=== PATIENT | male | born 1950 | race Caucasian/White ===

== ENCOUNTER → 2016-12-08 | Outpatient (CLI) | payer BC ==
[~2016-12-08] MED LIST: ALL100 PO; ALPR-411 PO; ASCA500 PO; ASPCH81X PO; ATOR-24 PO; LISI-729 PO; MAGN250T8 PO; METO1TAB69 PO; MULT-506 PO; OMEG10007 PO; OMEP20TA PO; OMEP40CA41 PO; PRIM50TA29 PO; SERT-234 PO; TOPI25TA99 PO
[2016-12-08 13:10] LABS: BASO % 0.3 %; BASO ABS # 0.02 K/uL (0-0.2); COMPLETE YES; EOS % 2.9 %; HEMATOCRIT 43.2 % (42-52); IG% 0.2 %; LYMPH % 21.5 %; LYMPH ABS # 1.25 K/uL (1.2-3.4); MEAN CELL VOLUME 93.7 fL (80-100); MEAN CORPUSCULAR HEMOGLOBIN 31.5 pg (25-34); MEAN CORPUSCULAR HGB CONC 33.6 g/dl (32-36); MONO % 6.4 %; NEUT % 68.7 %; PLATELET COUNT 171 K/uL (130-400); RED BLOOD COUNT 4.61 M/uL (4.7-6.1); WHITE BLOOD COUNT 5.81 K/uL (4.8-10.8)
[2016-12-08 13:45] LABS: ALT/SGPT 56 U/L (12-78); AST/SGOT 24 U/L (15-37); BLOOD UREA NITROGEN 25 mg/dl (7-18); BUN/CREATININE RATIO 18.1 (10-20); CALCIUM 8.7 mg/dl (8.5-10.1); CARBON DIOXIDE 24 mmol/L (21-32); CHLORIDE 111 mmol/L (98-107); CHOLESTEROL 157 mg/dl (0-200); GLUCOSE 82 mg/dl (70-99); POTASSIUM 4.6 mmol/L (3.5-5.1); SODIUM 143 mmol/L (136-145); TRIGLYCERIDES 154 mg/dl (0-150); URIC ACID 5.1 mg/dl (2.6-7.2); VERY LOW DENSITY LIPOPROT CALC 31 mg/dl
[2016-12-08 13:56] LABS: CHOLESTEROL/HDL RATIO 2.8; HDL CHOLESTEROL 57 mg/dl; LDL CHOLESTEROL CALCULATED 69 mg/dl
--- NOTE | 2016-12-28 07:33 | CODING QUERY NO DIAGNOSIS ---
TREATMENT RENDERED WITHOUT A DIAGNOSIS To promote full compliance with coding requirements relating to patient care, physician participation is requested in all cases of knockout worker uncertainty. Please assist us with providing a diagnosis/symptom for the test(s) below: A diagnosis/symptom was not documented on your Order. A valid diagnosis/symptom is required to bill all insurances. Please remember that we are unable to code a diagnosis of rule out, probable, possible, questionable, or suspected. Tests that require a diagnosis: DOS: 12/08/16 * CBC W/ AUTO DIFF DIAGNOSIS: * ALT/SGPT DIAGNOSIS: * AST/SGOT DIAGNOSIS: * CREATINE PHOSPHOKINASE DIAGNOSIS: * LIPID PROFIKE FASTING DIAGNOSIS: * PARTIAL RENAL PROFILE DIAGNOSIS: * TSH DIAGNOSIS: * URIC ACID DIAGNOSIS: Provider Signature: Date: Thank you Juliana Camarillo [employer] Once completed, please kindly fax back to [phone] For questions please call [phone]
== END | disposition home or self-care (01) ==
LOC: C.LAB 12:07
DX: Z01.89 Encounter for other specified special examinations (principal)

== ENCOUNTER → 2017-01-11 | Outpatient (CLI) | payer BC | END | disposition home or self-care (01) | LOC: C.LABSPEC 14:55 | DX: R30.0 Dysuria (principal) ==

== ENCOUNTER → 2017-02-22 | Day surgery (SDC) | payer BC ==
[2016-07-05 09:07] VITALS: BMI 42.0
[2017-02-13 09:50] VITALS: BMI 44.0
[~2017-02-22] VITALS: Ht 177.8 cm; Wt 140.9 kg
[~2017-02-22] MED LIST changes: +LIDOCAINE HCL 2% 2 ML VIAL (20MG/ML) ONE; +MIDAZOLAM HCL 1 MG/ML 2ML VIAL ONE; -OMEP40CA41 PO; +ONDANSETRON INJ 2 MG/ML 2 ML VIAL ONE; +PROPOFOL IV EMULSION 10 MG/ML 20 ML VIAL IV ONE; +SODIUM CHLORIDE 0.9% 500ML 500 ML IV ONE
[2017-02-22 12:48] VITALS: Ht 177.8 cm; Wt 140.9 kg
--- NOTE | 2017-02-22 12:50 | Endo History and Physical ---
History & Physical Date of Service: Feb 22, 2017. Chief Complaint: Screening Referring Physician: Joelle History of Present Illness 66 yo CM who presents for screening colonoscopy. Past Surgical History Hx Cardiac Surgery: No Hx Internal Defibrillator: No Hx Pacemaker: No Hx Abdominal Surgery: Yes (LAP ROSHAN, VENTRAL ABDOMINAL HERNIA) Hx of Implantable Prosthesis: No Hx Post-Op Nausea and Vomiting: No Hx Cancer Surgery: No Hx Thoracic Surgery: No Hx Orthopedic: Yes (LT KNEE SX X 2, LT TKA, RT KNEE SX) Hx Urinary Tract Surgery: No Family History None Social History Smoking Status: Never Smoker Hx Substance Use: No Hx Alcohol Use: Yes (SOCIALLY) Allergies Coded Allergies: No Known Drug Allergy (Verified Allergy, Unknown, NONE, 02/22/17) Current Medications Reported Home Medications Medications Dose Route/Sig Max Daily Dose Days Date Category Vitamin C (Ascorbic Acid) 500 Mg Tab 1 Tab PO QAM 02/13/17 Reported Topamax (Topiramate) 25 Mg Tab 25 Mg PO BID 02/13/17 Reported Omeprazole 20 Mg Tab 2 Tabs PO QAM 02/13/17 Reported Aspirin Chewable (Aspirin) 81 Mg Chew 81 Mg PO QPM 07/05/16 Reported Multivitamin (Multivitamins) Tab 1 Tab PO BID 07/05/16 Reported Xanax (Alprazolam) 0.5 Mg Tab 1-1.5 Tab PO Q6H PRN 07/05/16 Reported Lipitor (Atorvastatin Calcium) 40 Mg Tab 40 Mg PO QPM 07/05/16 Reported Zestril (Lisinopril) 5 Mg Tab 5 Mg PO QPM 07/05/16 Reported Toprol-Xl (Metoprolol Succinate) 100 Mg Tabcr 100 Mg PO QPM 07/05/16 Reported Zoloft (Sertraline HCl) 100 Mg Tab 200 Mg PO QAM 07/05/16 Reported Mysoline (Primidone) 50 Mg Tab 4 Tab PO BID 07/05/16 Reported Magnesium (Magnesium Oxide (Mg Supplement) 250 Mg Tab 500 Mg PO QPM 02/26/15 Reported [place]-3 (Fish Oil) 1 Ea Cap 1 Cap PO BID 03/30/10 Reported Zyloprim * (Allopurinol) 100 Mg Tab 100 Mg PO BID 01/20/08 Reported Vital Signs Weight (Kilograms): 140.91 Height (Feet): 5 Height (Inches): 10 Physical Exam General Appearance: WD/WN, no apparent distress Respiratory/Chest: Auscultation: breath sounds normal Cardiovascular: Heart Auscultation: RRR Abdomen: Bowel Sounds: normal Inspection & Palpation: soft, non-distended, no tenderness, guarding & rebound Assessment and Plan Assessment: 66 yo CM who presents for screening colonoscopy. Plan: Proceed with colonoscopy.
--- NOTE | 2017-02-22 13:40 | Discharge Instructions ---
Endoscopy Patient Instructions Date / Procedure(s) Performed Feb 22, 2017. Colonoscopy Allergy Information Coded Allergies: No Known Drug Allergy (Verified Allergy, Unknown, NONE, 02/22/17) Discharge Date / Findings Feb 22, 2017. Colon polyps Diverticulosis Internal hemorrhoids Medication Instructions Stopped Medication(s): DID NOT STOP ANY OK to resume all medications today as prescribed Reported Home Medications Medications Dose Route/Sig Max Daily Dose Days Date Category Vitamin C (Ascorbic Acid) 500 Mg Tab 1 Tab PO QAM 02/13/17 Reported Topamax (Topiramate) 25 Mg Tab 25 Mg PO BID 02/13/17 Reported Omeprazole 20 Mg Tab 2 Tabs PO QAM 02/13/17 Reported Aspirin Chewable (Aspirin) 81 Mg Chew 81 Mg PO QPM 07/05/16 Reported Multivitamin (Multivitamins) Tab 1 Tab PO BID 07/05/16 Reported Xanax (Alprazolam) 0.5 Mg Tab 1-1.5 Tab PO Q6H PRN 07/05/16 Reported Lipitor (Atorvastatin Calcium) 40 Mg Tab 40 Mg PO QPM 07/05/16 Reported Zestril (Lisinopril) 5 Mg Tab 5 Mg PO QPM 07/05/16 Reported Toprol-Xl (Metoprolol Succinate) 100 Mg Tabcr 100 Mg PO QPM 07/05/16 Reported Zoloft (Sertraline HCl) 100 Mg Tab 200 Mg PO QAM 07/05/16 Reported Mysoline (Primidone) 50 Mg Tab 4 Tab PO BID 07/05/16 Reported Magnesium (Magnesium Oxide (Mg Supplement) 250 Mg Tab 500 Mg PO QPM 02/26/15 Reported [place]-3 (Fish Oil) 1 Ea Cap 1 Cap PO BID 03/30/10 Reported Zyloprim * (Allopurinol) 100 Mg Tab 100 Mg PO BID 01/20/08 Reported Provider Instructions Activity Restrictions - No exercising or heavy lifting for 24 hours. - Do not drink alcohol the day of the procedure. - Do not drive a car or operate machinery until the day after the procedure. - Do not make any important decisions or sign important papers in 24 hours after the procedure. Following Day: - Return to full activity which may include returning to work/school. Diet Start your diet with liquids and light foods (jello, soup, juice, toast). Then eat your usual diet if not nauseated. Treatment For Common After Affects For mild abdominal pain, bloating, or excessive gas: - Rest - Eat lightly - Lie on right side Follow-Up Information Follow-up with DR CROFT as scheduled Anesthesia Information What You Should Know You have had a procedure that required some medicine to reduce anxiety and discomfort. This treatment is called moderate sedation. After receiving the treatment, you may be sleepy, but you will be able to breathe on your own. The effects of the treatment may last for several hours. Follow these instructions along with Activity/Diet recommendations noted above: * Do NOT do anything where dizziness or clumsiness would be dangerous. * Rest quietly at home today, then you can be up and about tomorrow. * Have a responsible person stay with you the rest of today. * You may have had an I.V. today. If so, you may take the dressing off later today. Recommendations Call your doctor if: * Trouble breathing * Continuous vomiting for more than 24 hours * Temperature above 101 degrees * Severe abdominal pain or bloating * Pain not relieved by pain medicine ordered * There is increased drainage or redness from any incision * A large amount of rectal bleeding greater than 2-3 tablespoons. (If you had a polyp/s removed or have hemorrhoids, a small amount of blood - from the rectum is to be expected.) * You have any unanswered questions or concerns. IN THE EVENT OF A SERIOUS EMERGENCY, GO TO THE NEAREST EMERGENCY ROOM Your discharge instructions were prepared by provider Eleno Arriola. Patient Instructions Signature Page Yevgeniy Guardado Patient (or Guardian) Signature/Date: I have read and understand the instructions given to me by my caregivers. Caregiver/RN/Doctor Signature/Date: The above-named patient and/or guardian has received patient instructions on this date. + Original Patient Signature Page (only) stays with chart. Please make copy for patient.
--- NOTE | 2017-02-22 14:02 | GI REPORT ---
Procedure Date: 02/22/2017 1:11 PM Procedure: Colonoscopy Indications: Screening for colorectal malignant neoplasm Medicines: Monitored Anesthesia Care Complications: No immediate complications. Estimated Blood Loss: Estimated blood loss: none. Procedure: Pre-Anesthesia Assessment: - Prior to the procedure, a History and Physical was performed, and patient medications and allergies were reviewed. The patient's tolerance of previous anesthesia was also reviewed. The risks and benefits of the procedure and the sedation options and risks were discussed with the patient. All questions were answered, and informed consent was obtained. Prior Anticoagulants: The patient has taken aspirin, last dose was 1 day prior to procedure. ASA Grade Assessment: III - A patient with severe systemic disease. After reviewing the risks and benefits, the patient was deemed in satisfactory condition to undergo the procedure. After I obtained informed consent, the scope was passed under direct vision. Throughout the procedure, the patient's blood pressure, pulse, and oxygen saturations were monitored continuously. The scope was introduced through the anus and advanced to the cecum, identified by appendiceal orifice and ileocecal valve. The colonoscopy was performed without difficulty. The patient tolerated the procedure well. The quality of the bowel preparation was good. The ileocecal valve, appendiceal orifice, and rectum were photographed. Findings: Three sessile polyps were found in the transverse colon and in the ascending colon. The polyps were 3 to 5 mm in size. These polyps were removed with a cold snare. Resection and retrieval were complete. Multiple small-mouthed diverticula were found in the sigmoid colon. Non-bleeding internal hemorrhoids were found during retroflexion. The hemorrhoids were small. Impression: - Three 3 to 5 mm polyps in the transverse colon and in the ascending colon, removed with a cold snare. Resected and retrieved. - Diverticulosis in the sigmoid colon. - Non-bleeding internal hemorrhoids. Recommendation: - Resume previous diet. - Continue present medications. - Repeat colonoscopy for surveillance based on pathology results. - Return to primary care physician as previously scheduled. Eleno Arriola DO 02/22/2017 2:01:27 PM This report has been signed electronically. Note Initiated On: 02/22/2017 1:11 PM I attest to the content of the Intraoperative Record and orders documented therein, exceptions below
[2017-02-22 14:12] VITALS: BP 134/63; PULSE 59; O2SAT 97
--- NOTE | 2017-02-22 14:12 | Anesthesiology Progress Note ---
Anesthesia Post Op Note Date & Time Feb 22, 2017 at 14:12 Vital Signs Pain Intensity: 0 Vital Signs Past 12 Hours Date Time Temp Pulse Resp B/P (MAP) Pulse Ox O2 Delivery O2 Flow Rate FiO2 02/22/17 13:57 58 18 133/67 (89) 97 Room Air 02/22/17 13:42 60 16 104/42 (62) 95 Room Air 02/22/17 12:54 36.5 63 20 154/65 (94) 96 Room Air Notes Mental Status: alert / awake / arousable, participated in evaluation Pt Amnestic to Procedure: Yes Nausea / Vomiting: adequately controlled Pain: adequately controlled Airway Patency, RR, SpO2: stable & adequate BP & HR: stable & adequate Hydration State: stable & adequate Anesthetic Complications: no major complications apparent
== END | disposition home or self-care (01) ==
LOC: C.GI 12:31
PROVIDERS: ATTEND Internal Medicine
DX: Z12.11 Encounter for screening for malignant neoplasm of colon (principal); D12.2 Benign neoplasm of ascending colon; D12.3 Benign neoplasm of transverse colon; K57.30 Diverticulosis of large intestine without perforation or abscess without bleeding; K64.8 Other hemorrhoids; G47.33 Obstructive sleep apnea (adult) (pediatric)

== ENCOUNTER → 2017-08-17 | Outpatient (CLI) | payer BC ==
[~2017-08-17] MED LIST changes: -LIDOCAINE HCL 2% 2 ML VIAL (20MG/ML) ONE; +METO100T44 PO; -METO1TAB69 PO; -MIDAZOLAM HCL 1 MG/ML 2ML VIAL ONE; -ONDANSETRON INJ 2 MG/ML 2 ML VIAL ONE; -PROPOFOL IV EMULSION 10 MG/ML 20 ML VIAL IV ONE; -SODIUM CHLORIDE 0.9% 500ML 500 ML IV ONE
--- NOTE | 2017-08-17 13:59 | DIAGNOSTIC IMAGING REPORT ---
CHEST 2 VIEWS ROUTINE CLINICAL HISTORY: 67 years-old Male presenting with DYSPNEA. TECHNIQUE: PA and lateral views of the chest were obtained. COMPARISON: 06/28/2015. FINDINGS: Atherosclerosis of the aortic arch. Cardiac silhouette normal in size. Mildly low lung volumes with hypoventilatory changes. Bandlike opacity at the right lung base. Blunting of the left costophrenic angle on frontal radiograph may be due to prominent pericardial fat as no pleural effusion is evident in the posterior costophrenic sulci. Degenerative changes of the thoracic spine. Upper abdomen normal. IMPRESSION: 1. Mildly low lung volumes with hypoventilatory changes in right basilar atelectasis or scarring. Electronically signed by: Derian Almeida M.D. 08/17/2017 1:58 PM Dictated Date/Time: 08/17/2017 1:57 PM
[2017-08-17 16:55] LABS: ALT/SGPT 59 U/L (12-78); AST/SGOT 24 U/L (15-37); BLOOD UREA NITROGEN 37 mg/dl (7-18); CALCIUM 8.4 mg/dl (8.5-10.1); CARBON DIOXIDE 24 mmol/L (21-32); CREATININE 1.41 mg/dl (0.60-1.40); GLUCOSE 84 mg/dl (70-99); POTASSIUM 4.6 mmol/L (3.5-5.1); SODIUM 142 mmol/L (136-145); URIC ACID 4.4 mg/dl (2.6-7.2)
[2017-08-18 06:54] LABS: HEMOGLOBIN A1C 5.2 % (4.5-5.6)
== END | disposition home or self-care (01) ==
LOC: C.RADBC 13:02
DX: R06.00 Dyspnea, unspecified (principal); I10 Essential (primary) hypertension; E78.5 Hyperlipidemia, unspecified; E03.9 Hypothyroidism, unspecified; R73.9 Hyperglycemia, unspecified; E79.0 Hyperuricemia without signs of inflammatory arthritis and tophaceous disease

== ENCOUNTER → 2018-02-04 | Outpatient (CLI) | payer BC ==
[~2018-02-04] MED LIST changes: -ALL100 PO; +ALLO100T PO; +LEVO50TA6 PO
[2018-02-04 10:57] LABS: BASO % 0.2 %; BASO ABS # 0.01 K/uL (0-0.2); EOS % 2.2 %; EOS ABS # 0.12 K/uL (0-0.5); HEMATOCRIT 45.2 % (42-52); HEMOGLOBIN 15.4 g/dL (14.0-18.0); IG# 0.01 K/uL (0.00-0.02); LYMPH % 19.1 %; LYMPH ABS # 1.05 K/uL (1.2-3.4); MEAN CORPUSCULAR HGB CONC 34.1 g/dl (32-36); MEAN PLATELET VOLUME 10.6 fL (7.4-10.4); MONO ABS # 0.44 K/uL (0.11-0.59); NEUT % 70.3 %; NEUT ABS # 3.88 K/uL (1.4-6.5); PLATELET COUNT 190 K/uL (130-400); RED CELL DISTRIBUTION WIDTH CV 14.6 % (11.5-14.5); RED CELL DISTRIBUTION WIDTH SD 50.3 fL (36.4-46.3); WHITE BLOOD COUNT 5.51 K/uL (4.8-10.8)
[2018-02-04 11:26] LABS: ALBUMIN 3.8 gm/dl (3.4-5.0); ALKALINE PHOSPHATASE 142 U/L (45-117); ALT/SGPT 112 U/L (12-78); AST/SGOT 46 U/L (15-37); BLOOD UREA NITROGEN 38 mg/dl (7-18); CARBON DIOXIDE 26 mmol/L (21-32); CREATININE 1.58 mg/dl (0.60-1.40); GLUCOSE 90 mg/dl (70-99); POTASSIUM 4.8 mmol/L (3.5-5.1); SODIUM 138 mmol/L (136-145); TOTAL PROTEIN 7.2 gm/dl (6.4-8.2); URIC ACID 5.4 mg/dl (2.6-7.2)
== END | disposition home or self-care (01) ==
LOC: C.LABBC 08:57
DX: E79.0 Hyperuricemia without signs of inflammatory arthritis and tophaceous disease (principal)